=== PATIENT | male | born 1965 | race Hispanic/Latino ===

== ENCOUNTER 2018-10-28 14:49 | Emergency (ER) | payer MEDICARE ==
[~2018-10-28] VITALS: Ht 177.8 cm; Wt 122.5 kg
[2018-10-28 16:11] LABS: BASOPHILS % 0.5 % (0.0-1.0); EOSINOPHILS # (AUTO) 0.1 (0.0-0.4); EOSINOPHILS % 2.1 % (0.0-6.0); HEMATOCRIT 50.3 % (38.2-49.6); HEMOGLOBIN 16.9 g/dL (14.0-18.0); LYMPHOCYTES # (AUTO) 0.6 (1.0-3.2); LYMPHOCYTES % 10.1 % (18.0-39.1); MEAN CORPUSCULAR HEMOGLOBIN 29.8 pg (28-32); MEAN CORPUSCULAR HGB CONC 33.6 g/dL (31-35); MEAN CORPUSCULAR VOLUME 88.7 fL (81-99); MONOCYTES # (AUTO) 0.6 (0.2-0.8); MONOCYTES % 10.1 % (4.4-11.3); NEUTROPHILS # (AUTO) 4.7 (2.1-6.9); NEUTROPHILS % 76.4 % (38.7-80.0); PLATELET COUNT 296 x10e3/uL (140-360); RED BLOOD COUNT 5.67 x10e6/uL (4.3-5.7); RED CELL DISTRIBUTION WIDTH 12.6 % (11.7-14.4)
[2018-10-28 16:36] LABS: ALANINE AMINOTRANSFERASE 115 IU/L (0-55); ALBUMIN 4.1 g/dL (3.5-5.0); ALKALINE PHOSPHATASE 70 IU/L (40-150); ANION GAP 16.5 mmol/L (8-16); BLOOD UREA NITROGEN 15 mg/dL (7-26); BUN/CREATININE RATIO 13 (6-25); CALCIUM 10.4 mg/dL (8.4-10.2); CARBON DIOXIDE 21 mmol/L (22-29); CHLORIDE 94 mmol/L (98-107); EST GLOMERULAR FILTRATION RATE > 60 ML/MIN (60-); GLUCOSE 218 mg/dL (74-118); POTASSIUM 3.5 mmol/L (3.5-5.1); SODIUM 128 mmol/L (136-145)
[2018-10-28 16:49] LABS: BILIRUBIN,URINE 1+ (NEGATIVE); CLARITY,URINE HAZY (CLEAR); COLOR,URINE AMBER (YELLOW); KETONES,URINE NEGATIVE (NEGATIVE); LEUKOCYTE ESTERASE ,URINE NEGATIVE (NEGATIVE); NITRITE,URINE NEGATIVE (NEGATIVE); PROTEIN,URINE DIPSTICK 2+ (NEGATIVE); URINE UROBILINOGEN 0.2 mg/dL (0.2 - 1)
[2018-10-28 17:08] LABS: EPITHELIAL CELLS,URINE MODERATE /LPF; RBC,URINE 0-5 /HPF (0-5)
[2018-10-28 17:12] LABS: MUCUS,URINE MANY (RARE)
[2018-10-28] MEDS ORDERED: SODIUM CHLORIDE 0.9% 1000ML 1,000 ML IV STA (19:58)
[2018-10-28] MEDS ORDERED: ONDANSETRON HCL INJ 2MG/ML 2ML 2 MG/ML VIAL IV NR (20:00)
[2018-10-28] MEDS ORDERED: DICYCLOMINE HCL 20 MG/2 ML VIAL IM ONE (20:00)
--- NOTE | 2018-10-28 20:01 | NUR ---
BILATERAL BP PERFORMED. R ARM 121/77 (100); L ARM 121/85(97).
[2018-10-28] MEDS ORDERED: DIATRIZOATE MEGL/DIATRIZOA SOD 30 ML BTL PO ONE (20:07)
--- NOTE | 2018-10-28 22:18 | Diagnostic Imaging Report ---
EXAM: CT Abdomen and Pelvis WITH contrast INDICATION: Diffuse abdominal pain. Concern for diverticulitis. COMPARISON: None. TECHNIQUE: Abdomen and pelvis were scanned utilizing a multidetector helical scanner from the lung base to the pubic symphysis after administration of IV contrast. Coronal and sagittal reformations were obtained. Routine protocol was performed. Scan was performed when during portal venous phase. IV CONTRAST: 100 mL of Isovue-370 ORAL CONTRAST: Gastroview COMPLICATIONS: None RADIATION DOSE: Total DLP: 950.5 mGy*cm Estimated effective dose: (DLP x 0.015 x size factor) mSv Dose modulation, iterative reconstruction, and/or weight based adjustment of the mA/kV was utilized to reduce the radiation dose to as low as reasonably achievable. FINDINGS: LINES and TUBES: None. LOWER THORAX: Coronary artery calcifications along the left circumflex and left anterior descending coronary arteries. HEPATOBILIARY: Diffuse hypoattenuation of the liver compatible with steatosis. Calcified granuloma at the dome. No focal hepatic lesions. No biliary ductal dilation. GALLBLADDER: No radio-opaque stones or sludge. No wall thickening. SPLEEN: No splenomegaly. PANCREAS: No focal masses or ductal dilatation. ADRENALS: No adrenal nodules KIDNEYS/URETERS: Kidneys enhance symmetrically. No hydronephrosis. No cystic or solid mass lesions. No stones. GI TRACT: There is mild colonic wall thickening throughout the colon without pericolonic stranding. No abnormal distention or evidence of bowel obstruction. Appendix is normal. PELVIC ORGANS/BLADDER: Small bladder diverticulum along the right posterior lateral wall. LYMPH NODES: No lymphadenopathy. VESSELS: There is mild atherosclerotic disease in the aorta and major arterial branches. PERITONEUM / RETROPERITONEUM: No free air or fluid. BONES: There are degenerative changes in the lumbar spine. SOFT TISSUES: Unremarkable. IMPRESSION: 1. Mild colonic wall thickening may suggest mild colitis. 2. No evidence of diverticulitis as queried. 3. Hepatic steatosis Signed by: DR. Alexis Villavicencio MD on 10/28/2018 10:14 PM
--- NOTE | 2018-10-29 00:30 | NUR ---
PT NOT IN WAITING ROOM FOR ASSESSMENT AND MEDS. PER REPORT FROM STAFF, PT LEFT WITH IV STILL IN PLACE. [facility] CALLED.
[2018-10-29] MEDS ORDERED: SODIUM CHLORIDE 0.9% 50ML 50 ML ONE (02:27)
[2018-10-29] MEDS ORDERED: IOPAMIDOL 370 MG/ML 200 ML INFUS..BTL INJ ONE (02:28)
[2018-10-29] MEDS ORDERED: DICYCLOMINE HCL 20 MG/2 ML VIAL IM ONE (03:19)
[2018-10-29] MEDS ORDERED: SODIUM CHLORIDE 0.9% 1000ML 1,000 ML ONE (03:19)
[2018-10-29] MEDS ORDERED: ONDANSETRON HCL INJ 2MG/ML 2ML 2 MG/ML VIAL ONE (03:19)
[2018-10-29] MEDS ORDERED: ONDANSETRON HCL INJ 2MG/ML 2ML 2 MG/ML VIAL IV STA (09:35)
[2018-10-29] MEDS ORDERED: HYDROMORPHONE 2MG/ML 2 MG/ML ML IV ONE ×2 (09:45→13:45)
== END 2018-10-29 03:30 | disposition left against medical advice (07) ==
LOC: EDBD 14:49 → ER 14:49
DX: R19.7 Diarrhea, unspecified (principal)
CPT/HCPCS: 36415; 74177; 80053; 81001; 85025; 93005; J1170; J2405; J7030; Q9967; J0500